=== PATIENT | male | born 1980 ===

== ENCOUNTER 2018-04-04 04:22 | Emergency (ER) | payer MEDICARE, OTHER ==
[2018-04-04] MEDS ORDERED: morphine 4 MG/ML VIAL IV (04:44)
[2018-04-04] MEDS ORDERED: ONDANSETRON 4 MG INJ IV (04:44)
[2018-04-04] MEDS ORDERED: SOD CHLORIDE 0.9% 500 ML IV (05:00)
== END 2018-04-04 05:22 | disposition left against medical advice (07) ==
LOC: E/R 04:22
DX: R10.12 Left upper quadrant pain (principal); I10 Essential (primary) hypertension; E11.9 Type 2 diabetes mellitus without complications; Z99.2 Dependence on renal dialysis
CPT/HCPCS: 99282